=== PATIENT | female | born 1995 | race Caucasian/White ===

== ENCOUNTER 2024-02-03 08:07 | Day surgery (SDC) | payer BC ==
[2024-02-03] MEDS ORDERED: Midazolam 1 MG/ML 2 ML SDV IV ONE (08:08)
[2024-02-03] MEDS ORDERED: Propofol 200 MG/20 ML SDV IV ONE (08:08)
[2024-02-03] MEDS ORDERED: fentaNYL 100 MCG/2 ML SDV IV ONE (08:08)
[2024-02-03] MEDS ORDERED: Sodium Chloride 0.9% 10 ML Syringe FLUSH PRN (08:15)
[2024-02-03] MEDS: Lactated Ringers 1,000 ML IV SCH (09:12)
== END 2024-02-03 10:55 | disposition home or self-care (01) ==
LOC: FB.SDS 08:07
PROVIDERS: ATTEND Surgery
DX: K29.70 Gastritis, unspecified, without bleeding (principal); K20.90 Esophagitis, unspecified without bleeding; R13.10 Dysphagia, unspecified; R07.89 Other chest pain; R05.3 Chronic cough; R49.0 Dysphonia; F41.9 Anxiety disorder, unspecified; F32.A Depression, unspecified; Z79.899 Other long term (current) drug therapy; Z87.891 Personal history of nicotine dependence
CPT/HCPCS: 00731; 88305; 88342; J2250; J2704; J3010; J7120